=== PATIENT | female | born 1960 | race Two or more races ===

== ENCOUNTER 2020-04-01 22:26 | Emergency (ER) | payer BC ==
[2020-04-02] MEDS ORDERED: HYDROCODONE/ACETAMINOPHEN 5-325 MG TABLET PO ONE (00:56)
--- NOTE | 2020-04-02 00:57 | ER Document Report ---
ED Medical Screen (RME) - General Chief Complaint: Shoulder Pain Stated Complaint: BACK AND LEFT SHOULDER PAIN Time Seen by Provider: 04/02/20 00:49 Mode of Arrival: Ambulatory Notes: Patient presents complaining of left upper back, left side of neck and left arm pain that started yesterday. Patient complains of increased pain with inspiration. Patient denies any cough or fever. She reports a history of A. fib, hypertension, diabetes high cholesterol and migraines. I have greeted and performed a rapid initial assessment of this patient. A comprehensive ED assessment and evaluation of the patient, analysis of test results and completion of the medical decision making process will be conducted by additional ED providers. - Related Data Allergies/Adverse Reactions: No Known Allergies Allergy (Unverified 04/02/20 00:49) Past Medical History - Past Medical History Cardiac Medical History: Reports: Hx Atrial Fibrillation, Hx Hypercholesterolemia, Hx Hypertension Pulmonary Medical History: Reports: Hx Asthma Endocrine Medical History: Reports: Hx Diabetes Mellitus Type 2 Physical Exam - Vital signs Vitals: Temp Resp BP Pulse Ox 97.8 F 20 138/94 H 100 04/01/20 22:42 04/01/20 22:42 04/01/20 22:42 04/01/20 22:42 - Respiratory Respiratory status: No respiratory distress Chest status: Pain with deep breathing - Back Back: Tender - Left trapezius muscle tenderness Course - Vital Signs Vital signs: Temp Pulse Resp BP Pulse Ox 97.8 F 20 138/94 H 100 04/01/20 22:42 04/01/20 22:42 04/01/20 22:42 04/01/20 22:42
--- NOTE | 2020-04-02 01:28 | ER Document Report ---
ED General Pain - General Chief Complaint: Shoulder Pain Stated Complaint: BACK AND LEFT SHOULDER PAIN Time Seen by Provider: 04/02/20 00:49 Mode of Arrival: Ambulatory Information source: Patient Notes: ED Medical Screen ([facility]) - General Chief Complaint: Shoulder Pain Stated Complaint: BACK AND LEFT SHOULDER PAIN Time Seen by Provider: 04/02/20 00:49 Mode of Arrival: Ambulatory Notes: Patient presents complaining of left upper back, left side of neck and left arm pain that started yesterday. Patient complains of increased pain with inspiration. Patient denies any cough or fever. She reports a history of A. fib, hypertension, diabetes high cholesterol and migraines. MY NOTES 59-year-old female arrives with her good bilingual friend Who interprets for the patient. Patient works at [employer] . For the past several days she has had a left lateral trapezial pain pointing from her dorsum of her left neck to her left shoulder. She points to these areas. Patient denies any prior history of injury and denies any history of shingles but did have chickenpox as a little girl. Her mother and father smoked quite heavily as a child but she does not smoke. Her chest x-ray has interstitial patterns over multiple areas. Because [employer] has had many coronavirus we will empirically check for this virus. TRAVEL OUTSIDE OF THE [place] IN LAST 30 DAYS: Yes - HPI Onset: Yesterday Onset/Duration: Sudden, Persistent Quality of pain: Achy Severity: Moderate Pain Level: 3 Context: New onset Typical of prior episodes of painful crisis: No - Related Data Allergies/Adverse Reactions: No Known Allergies Allergy (Unverified 04/02/20 00:49) Past Medical History - General Information source: Patient, Friend - Social History Smoking Status: Never Smoker Cigarette use (# per day): No Chew tobacco use (# tins/day): No Smoking Education Provided: No Frequency of alcohol use: None Drug Abuse: None Lives with: Family Family History: Reviewed & Not Pertinent Patient has homicidal ideation: No - Past Medical History Cardiac Medical History: Reports: Hx Atrial Fibrillation, Hx Hypercholesterolemia, Hx Hypertension Pulmonary Medical History: Reports: Hx Asthma Endocrine Medical History: Reports: Hx Diabetes Mellitus Type 2 Review of Systems - Review of Systems Constitutional: No symptoms reported EENT: No symptoms reported Cardiovascular: No symptoms reported Respiratory: No symptoms reported Gastrointestinal: No symptoms reported Genitourinary: No symptoms reported Female Genitourinary: No symptoms reported Musculoskeletal: See HPI, Neck pain - With radiation towards left trapezial muscle to shoulder and scapula Skin: No symptoms reported Hematologic/Lymphatic: No symptoms reported Neurological/Psychological: No symptoms reported Physical Exam - Vital signs Vitals: Temp Resp BP Pulse Ox 97.8 F 20 138/94 H 100 04/01/20 22:42 04/01/20 22:42 04/01/20 22:42 04/01/20 22:42 Interpretation: Hypertensive - General General appearance: Appears well, Alert, Anxious - HEENT Head: Normocephalic, Atraumatic Eyes: Normal Pupils: PERRL Sinus: Normal Nasal: Normal Mouth/Lips: Normal Mucous membranes: Normal Pharynx: Normal Neck: Other - tener left lat neck;With radiation towards left trapezial muscle to shoulder and scapula - Respiratory Respiratory status: No respiratory distress Chest status: Nontender Breath sounds: Normal Chest palpation: Normal - Cardiovascular Rhythm: Regular Heart sounds: Normal auscultation Murmur: No - Abdominal Inspection: Normal Distension: No distension Bowel sounds: Normal Tenderness: Nontender Organomegaly: No organomegaly - Rectal Hemorrhoids: Other - deferred - Genitourinary Biman[place] exam: Other - deferred - Back Back: Normal, Nontender - Extremities General upper extremity: Normal inspection, Nontender, Normal color, Normal ROM, Normal temperature General lower extremity: Normal inspection, Nontender, Normal color, Normal ROM, Normal temperature, Normal weight bearing. No: Jean Carlos's sign - Neurological Neuro grossly intact: Yes Cognition: Normal Orientation: AAOx4 [place] Coma Scale Eye Opening: Spontaneous [place] Coma Scale Verbal: Oriented [place] Coma Scale Motor: Obeys Commands [place] Coma Scale Total: 15 Speech: Normal Motor strength normal: LUE, RUE, LLE, RLE Sensory: Normal - Psychological Associated symptoms: Normal affect - Skin Skin Temperature: Warm Skin Moisture: Dry Skin Color: Other - No active rash on patient's left trapezial or scapular area. Course - Vital Signs Vital signs: Temp Pulse Resp BP Pulse Ox 97.8 F 20 138/94 H 100 04/01/20 22:42 04/01/20 22:42 04/01/20 22:42 04/01/20 22:42 - Diagnostic Test Radiology reviewed: Reports reviewed - C-spine within normal limits but patient's chest x-ray with interstitial pattern suspected for coronavirus type pattern. This is on my interpretation Discharge - Discharge Clinical Impression: Neuropathy, Abnormal chest xray, COVID-19 virus test result unknown Hypertension Qualifiers: Hypertension type: unspecified Qualified Code(s): I10 - Essential (primary) hypertension Condition: Good Disposition: HOME, SELF-CARE Additional Instructions: Please await for COVID 19 test results until returning back to work if test results are negative. If your test results are positive you may have to quarantine for several weeks. Do not go to work if you test positive. Take medications as directed and watch out for shingles on your left upper back as we discussed with Savita your friend. Also encourage fluids and take B vitamins and vitamin C and get a recheck on your chest x-ray if symptoms persist. Prescriptions: Dexamethasone [Decadron 4 Mg Tablet] 4 mg PO DAILY #5 tablet Azithromycin [Zithromax 250 mg Tablet] 250 mg PO ASDIR PRN #6 tablet PRN Reason: Acyclovir [Zovirax 200 mg Capsule] 200 mg PO TID #21 capsule Forms: Return to Work Print Language: Guamanian
--- NOTE | 2020-04-02 01:42 | RADIOLOGY REPORT (SQ) ---
EXAM DESCRIPTION: X-RAY CHEST- TWO VIEWS CLINICAL HISTORY: Pain COMPARISON: None TECHNIQUE: 2 views of the chest FINDINGS: There are no discrete air space infiltrates, pneumothoraces or pleural effusions. The pulmonary vascularity is normal. The cardiomediastinal silhouette is mildly enlarged. No suspicious lytic or blastic osseous lesions are identified. IMPRESSION: Mild enlargement of the cardiac silhouette.
[2020-04-02] MEDS ORDERED: AZITHROMYCIN 250 MG TABLET PO ONE (01:43)
[2020-04-02] MEDS ORDERED: DEXAMETHASONE 4 MG TABLET PO ONE (01:43)
--- NOTE | 2020-04-02 01:47 | RADIOLOGY REPORT (SQ) ---
EXAM DESCRIPTION: [facility]: XR CERVICAL SPINE 4-5 VIEWS Views: 6 CLINICAL HISTORY: 59 years Female; neck pain; COMPARISON: None. FINDINGS: Alignment is normal. Facet joints are normal. No prevertebral edema. No focal subluxation. Disc spaces and vertebral body heights are preserved. No acute fracture. No significant bony foraminal stenosis. Odontoid view is normal. There are minimal degenerative endplate changes at C4-C5 and C5-C6. IMPRESSION: 1. Mild degenerative disc changes in the lower cervical spine. 2. No acute fracture or subluxation. 3. No significant bony foraminal stenosis.
[2020-04-02 02:28] VITALS: BP 148/72
== END 2020-04-02 02:25 | disposition home or self-care (01) ==
LOC: ER 22:26
DX: G62.9 Polyneuropathy, unspecified (principal); R91.8 Other nonspecific abnormal finding of lung field; Z20.828 Contact with and (suspected) exposure to other viral communicable diseases; M25.512 Pain in left shoulder; M54.6 Pain in thoracic spine; M54.2 Cervicalgia; M79.602 Pain in left arm; I48.91 Unspecified atrial fibrillation; I10 Essential (primary) hypertension; E11.9 Type 2 diabetes mellitus without complications
CPT/HCPCS: 99284; 72050; 71046; U0003; J8540; C9803; 87635